=== PATIENT | male | born 1985 | race Caucasian/White ===

== ENCOUNTER → 2020-11-19 15:27 | Outpatient (CLI) | payer OTHER, SELFPAY ==
[2015-06-27 16:07] VITALS: BMI 19.5
[2020-11-19 17:22] LABS: Creatinine, Serum 1.02 mg/dL (0.70-1.30); EST Glomerular Filtration Rate 88 mL/min (>60); Est Glom Filt Rate - Afr Amer 106 mL/min (>60)
== END ==
PROVIDERS: Referring Provider Podiatrist Foot & Ankle Surgery; Visit Provider Podiatrist Foot & Ankle Surgery
DX: R22.42 Localized swelling, mass and lump, left lower limb (principal); M79.672 Pain in left foot
CPT/HCPCS: 36415; 82565